=== PATIENT | female | born 1995 | race Caucasian/White ===

== ENCOUNTER 2018-04-04 10:12 | Emergency (ER) | payer OTHER ==
[~2018-04-04] VITALS: Ht 165.1 cm; Wt 90.7 kg
[2018-04-04 10:20] VITALS: BP 126/67
--- NOTE | 2018-04-04 10:20 | NUR ---
PT AMBULATES TO BED 12
--- NOTE | 2018-04-04 10:29 | NUR ---
RAD AT BEDSIDE
--- NOTE | 2018-04-04 11:00 | NUR ---
PT C/O CHEST PAIN THAT STARTED THIS MORNING. PT REPORTS THIS HAPPENED BEFORE AND SHE WAS TOLD BY DR THAT IT WAS "INFLAMED CARTILAGE". PATIENT STATES PAIN OF 7/10 AT THIS TIME; VSS; PATIENT POSITIONED FOR COMFORT; HOB ELEVATED; BEDRAILS UP X2; BED DOWN. ER MD MADE AWARE OF PT STATUS.
[2018-04-04] MEDS ORDERED: PANTOPRAZOLE 40 MG TABEC PO ONE (11:15)
[2018-04-04 11:44] VITALS: BP 123/62
--- NOTE | 2018-04-04 11:44 | NUR ---
Patient discharged with v/s stable. Written and verbal after care instructions given and explained. Patient alert, oriented and verbalized understanding of instructions. Ambulatory with steady gait. All questions addressed prior to discharge. ID band removed. Patient advised to follow up with PMD. Rx of protonix given. Patient educated on indication of medication including possible reaction and side effects. Opportunity to ask questions provided and answered.
== END 2018-04-04 11:44 | disposition home or self-care (01) ==
LOC: MED 10:12
DX: K29.00 Acute gastritis without bleeding (principal)
CPT/HCPCS: 71045; 99283